=== PATIENT | male | born 1940 | race Hispanic/Latino ===

== ENCOUNTER 2017-04-15 06:31 | Day surgery (SDC) | payer MEDICARE ==
[2017-04-02 09:09] VITALS: BMI 34.9
[2017-04-15] MEDS ORDERED: Bupivacaine 0.5% Inj(30mL) ONE (07:19)
[2017-04-15] MEDS ORDERED: Propofol 10 mg/ml Inj (20 ML) ONE (07:59)
[2017-04-15] MEDS ORDERED: Midazolam 2 MG/2 ML VIAL ONE (07:59)
[2017-04-15] MEDS ORDERED: Rocuronium 10 mg/ml (5 ml) ONE (08:02)
[2017-04-15 08:03] VITALS: RESP 18
[2017-04-15] MEDS ORDERED: Neostigmine Methylsulfate 3mg/3ml Syringe IV ONE (08:17)
[2017-04-15] MEDS ORDERED: Glycopyrrolate 0.2 mg/ml (2ml vial) ONE (08:17)
[2017-04-15] MEDS ORDERED: Lactated Ringer's 1,000 ML IV SCH (09:21)
[2017-04-15] MEDS ORDERED: Morphine 2 mg/ml ISec IVP PRN (09:21)
[2017-04-15] MEDS ORDERED: Morphine 2 mg/ml ISec ONE (09:51)
[2017-04-15] MEDS ORDERED: Morphine 2 mg/ml ISec IVP ONE (09:53)
--- NOTE | 2017-04-15 10:40 | PCM.SURG1 ---
Surgeon's Initial Post Op Note - Surgeon's Notes Surgeon: David Regulated Program Manager: [id number] Type of Anesthesia: General Endo Pre-Operative Diagnosis: Incarcerated umbilical hernia Operative Findings: Incarcerated umbilical hernia containing omentum Post-Operative Diagnosis: Incarcerated umbilical hernia Operation Performed: Primary umbilical hernia repair Specimen/Specimens Removed: hernia sack with omentum Estimated Blood Loss: EBL {In ML}: 5 Blood Products Given: N/A Drains Used: No Drains Post-Op Condition: Good Date of Surgery/Procedure: 04/15/17 Time of Surgery/Procedure: 07:45
[2017-04-15] MEDS ORDERED: Oxycodone/Acetaminophen 5/325 mg Tab PO ONE (10:50)
[2017-04-15 10:52] VITALS: TEMP 97.8
--- NOTE | 2017-04-15 12:33 | OP ---
PROCEDURE DATE: 04/15/2017 The patient has an umbilical hernia that is rather large. It could not be reduced. PREOPERATIVE DIAGNOSIS: Umbilical hernia. POSTOPERATIVE DIAGNOSIS: Umbilical hernia. OPERATION PERFORMED: Umbilical herniorrhaphy. SURGEON: Adolph Hernandez MD. COMMUNICATIONS CONTROLLER: The resident. DESCRIPTION OF PROCEDURE: In the operating room, the patient, having been identified, an infraumbili blake incision was made through the skin and subcutaneous tissues that was enlarged a little bit. This was taken down to the fascia, and the umbilicus was from the stalk. In so doing, pretty m uch the entire hernia was dissected. Blunt dissection went around it to complete it. We could not r educe it, and the sac was then opened - the sac removed with the omentum, which was cauterized as nec essary. This went back very nicely. This showed it to be a very small hernia opening. This was uri sed with a mattress stitch of #1 Prolene x 2. Complete dissection was achieved. There was nothing e lse untoward. Prior to tying these 2 stitches simultaneously, a finger was placed in, and there was no bleeding and no obstruction. Subcutaneous tissues were closed with Vicryl. Skin was closed with subcuticular, light pressure dressing. The patient was taken to recovery room in good condition af ter the sponge and needle counts were declared correct. Adolph Hernandez MD cc: [id number] TT: 04/15/2017 12:32:28 jn
[2017-04-15 13:43] VITALS: O2SAT 96
[2017-04-15 13:44] VITALS: BP 126/72; PULSE 70
== END 2017-04-15 13:30 | disposition home or self-care (01) ==
LOC: SDS 06:31
PROVIDERS: ATTEND Surgery
DX: K42.9 Umbilical hernia without obstruction or gangrene (principal); I10 Essential (primary) hypertension; I25.10 Atherosclerotic heart disease of native coronary artery without angina pectoris; E11.9 Type 2 diabetes mellitus without complications; E78.5 Hyperlipidemia, unspecified; E66.9 Obesity, unspecified
CPT/HCPCS: 49585; 82948; 88302; J0690; J1100; J2001; J2250; J2270; J2405; J2704; J2710; J2765; J3010; J7120 ×2

== ENCOUNTER 2019-01-29 16:48 | Inpatient (IN) | payer MEDICARE ==
[2019-01-29 16:49] VITALS: BMI 34.9
--- NOTE | 2019-01-29 18:03 | ED PDOC ---
Arrival/HPI - General Chief Complaint: Lower Extremity Problem/Injury Time Seen by Provider: 01/29/19 17:02 Historian: Patient, Family (Daughter at bedside helped provide information) - History of Present Illness Narrative History of Present Illness (Text): 01/29/19 17:15 78 M with PMHx of falls, presents with cc of left knee pain status post slipping and falling on ice around 16:30 prior to arrival. Pt reports it felt like his knee cap "went off to the right side." Patient notes he is not able to put any weight on that leg. Patient notes mild pain to left upper thigh. Daughter at bedside notes patient is on blood thinners. Daughter notes if pain medication is needed, to avoid Percocet because it makes patient constipated. Patient denies any other complaints. PMD: Vickey Dennis Time/Duration: Prior to Arrival (Patient notes slip and fall from 16:30 today prior to arrival) Symptom Onset: Sudden Symptom Course: Unchanged Context: Slipped (Patient notes he slipped and fell on ice ) Past Medical History - Provider Review Nursing Documentation Reviewed: Yes - Infectious Disease Hx of Infectious Diseases: None - Cardiac Hx Hypertension: Yes Hx Pacemaker: No Other/Comment: Cardiac cath x 3 stents - Neurological Hx Paralysis: No - Endocrine/Metabolic Hx Diabetes Mellitus Type 2: Yes - Hematological/Oncological Hx Blood Transfusions: No Hx Blood Transfusion Reaction: No - Musculoskeletal/Rheumatological Hx Musculoskeletal Disorders: Yes - Psychiatric Hx Emotional Abuse: No Hx Physical Abuse: No Hx Substance Use: No - Surgical History Other/Comment: Cardiac cath x 3 stents - Anesthesia Hx Anesthesia Reactions: Yes (NAUSEA/VOMITING) Hx Malignant Hyperthermia: No - Suicidal Assessment Feels Threatened In Home Enviroment: No Family/Social History - Physician Review Nursing Documentation Reviewed: Yes Family/Social History: No Known Family HX Smoking Status: Never Smoked Hx Alcohol Use: No Hx Substance Use: No Allergies/Home Meds Allergies/Adverse Reactions: Allergies nitroglycerin Allergy (Intermediate, Verified 01/29/19 17:14) MIGRAINES Home Medications: Home Meds Medication Instructions Recorded Confirmed Aspirin [Ecotrin] 325 mg PO QAM 04/17/16 01/29/19 Atorvastatin [Lipitor] 80 mg PO DAILY 04/17/16 01/29/19 Carvedilol [Coreg] 6.25 mg PO BID 04/17/16 01/29/19 Celecoxib [Celebrex] 200 mg PO DAILY 04/17/16 01/29/19 Olmesartan/Amlodipin/Hcthiazid 1 tab PO QAM 04/17/16 01/29/19 [Tribenzor 5 mg-25 mg-40 mg] Potassium Chloride [Klor-Con M20] 20 meq PO QPM 04/17/16 01/29/19 Ranolazine [Ranexa] 500 mg PO QAM 04/17/16 01/29/19 Famotidine [Pepcid] 20 mg PO BID 04/18/16 01/29/19 Prasugrel [Effient] 1 tab PO DAILY 01/29/19 01/29/19 Review of Systems - Physician Review All systems were reviewed & negative as marked: Yes (All other systems negative except that noted in the HPI.) Physical Exam - Physical Exam Narrative Physical Exam (Text): Gen: VS reviewed, alert, well developed, well nourished, nontoxic, mild distress Eye: EOMI, PERRL Neck: no JVD, supple, no adenopathy CV: regular rate, regular rhythm, no rubs,no murmur, S1, S2 Pulm: no distress, clear to auscultation, no wheeze, no rhonchi, breath sounds equal, no rales Abd: soft, nontender, no guarding, no rebound, no rigidity Ext: Trace edema in bilateral lower extremities. Moderate effusions of left knee. Limited ROM of left knee, secondary to pain. Patella seems to be midline. Mild tenderness of distal anterior femur. Skin: good color, no rash, no cyanosis Psych: responds appropriately to questions, normal affect Neuro: oriented x3, CN2-12 intact grossly, motor intact, sensation intact Vital Signs Reviewed: Yes Vital Signs Temp Pulse Resp BP Pulse Ox 01/29/19 16:49 97.8 F 61 18 160/85 H 96 Temperature: Afebrile Blood Pressure: Hypertensive Pulse: Regular Respiratory Rate: Normal Appearance: Positive for: Well-Appearing, Non-Toxic Pain Distress: Mild Mental Status: Positive for: Alert and Oriented X 3 Medical Decision Making ED Course and Treatment: 01/29/19 Impression: 78 year old male who presents to the Emergency department for left knee pain status post slipping and falling on ice around 16:30 prior to arrival. Differential Diagnosis included but are not limited to: Plan: -- EKG -- Labs -- Pack ice -- X-ray of left femur -- X-ray of left knee with patellla -- Reassess and disposition Prior Visits: Notes and results from previous visits were reviewed. Progress Notes: 01/29/19 19:55 d/w ALFONZO jalloh covering with dr. flores, accept admit. patient to be admitted for traumatic knee effusion, unable to bear weight, fall risk and cannot function at home. will need ortho consult, pain control, possible PT 01/29/19 20:[address] aranda, will see patient in consultation - RAD Interpretation Narrative RAD Interpretations (Text): 01/29/19 X-ray of left femur interpreted by me, shows: No fracture. X-ray of left knee interpreted by me, shows: No fracture or dislocation. Radiology Orders: 01/29/19 17:21 Femur Left [FEMUR MIN 2 VIEWS LT] [RAD] Stat 01/29/19 17:22 KNEE WITH PATELLA LEFT 3 VIEW [RAD] Stat Ladle Puller: ED Physician - EKG Interpretation EKG Interpretation (Text): 01/29/19 19:45 [id number]: sinus giselle at 58 bpm, rbbb, nonspecific t wave abn Interpreted by ED Physician: Yes - Scribe Statement The provider has reviewed the documentation as recorded by the Scribe Mi Teran All medical record entries made by the Scribe were at my direction and per sonally dictated by me. I have reviewed the chart and agree that the record accurately reflects my personal performance of the history, physical exam, medical decision making, and the department course for this patient. I have also personally directed, reviewed, and agree with the discharge instructions and disposition. Disposition/Present on Arrival - Present on Arrival Any Indicators Present on Arrival: No History of DVT/PE: No History of Uncontrolled Diabetes: No Urinary Catheter: No History of Decub. Ulcer: No History Surgical Site Infection Following: None - Disposition Have Diagnosis and Disposition been Completed?: Yes Diagnosis: Effusion of knee Disposition: HOSPITALIZED Disposition Time: 19:55 Patient Plan: Admission Condition: STABLE
[2019-01-29 19:11] LABS: BASO # 0.02 K/mm3 (0.0-2.0); BASO % 0.1 % (0.0-3.0); EOS # 0.2 (0.0-0.7); EOS % 1.4 % (1.5-5.0); HEMOGLOBIN 13.8 g/dL (14.0-18.0); LYMPH # 4.9 (1.2-3.4); LYMPH % 32.9 % (22.0-35.0); MEAN CORPUSCULAR HEMOGLOBIN 30.5 pg (25.0-35.0); MEAN CORPUSCULAR HGB CONC 34.2 g/dl (31.0-37.0); MEAN PLATELET VOLUME 10.2 fl (7.0-11.0); MONO # 0.5 (0.1-0.6); MONO % 3.3 % (1.0-6.0); RBC 4.53 10^6/uL (3.5-6.1); RED CELL DISTRIBUTION WIDTH 13.2 % (11.5-14.5); WHITE BLOOD COUNT 14.8 10^3/uL (4.5-11.0)
[2019-01-29 19:20] LABS: INR 1.06; PARTIAL THROMBOPLASTIN TIME 29.4 Seconds (26.9-38.3); PROTHROMBIN TIME 11.8 SECONDS (9.4-12.5)
[2019-01-29 19:25] LABS: BLOOD UREA NITROGEN 18 mg/dL (7-21); CALCIUM 7.8 mg/dL (8.4-10.5); GFR NON-AFRICAN AMERICAN > 60
[2019-01-29] MEDS: Potassium Chloride 20 mEq ER Tab PO SCH (23:07)
--- NOTE | 2019-01-30 08:23 | CARD ---
APPROVED REPORT Date of service: 01/29/2019 EKG Measurement Heart [id number] <Conclusion> Sinus bradycardia with sinus arrhythmia with 1st degree AV block Right bundle branch block Abnormal ECG
[2019-01-30] MEDS ORDERED: AMLODIPIN PO SCH (10:00)
[2019-01-30] MEDS ORDERED: HCTHIAZID PO SCH (10:00)
[2019-01-30] MEDS ORDERED: [UNRECOGNIZED DRUG - OTHER] PO SCH (10:00)
[2019-01-30] MEDS ORDERED: OLMESARTAN PO SCH (10:00)
--- NOTE | 2019-01-30 10:20 | RAD ---
Date of service: 01/29/2019 PROCEDURE: Left Femur Radiographs. HISTORY: fall, injury COMPARISON: None. TECHNIQUE: AP and Lateral Radiographs of the left femur. FINDINGS: FEMUR: Normal. No fracture. SOFT TISSUES: Normal. OTHER FINDINGS: None. IMPRESSION: Unremarkable radiographs of the left femur.
--- NOTE | 2019-01-30 10:24 | RAD ---
Date of service: 01/29/2019 PROCEDURE: Left Knee Radiographs. HISTORY: Pain. COMPARISON: None. FINDINGS: BONES: Normal. No fracture. JOINTS: Normal. No osteoarthritis. JOINT EFFUSION: None. OTHER FINDINGS: Soft tissue swelling above the patella IMPRESSION: No evidence of fracture
[2019-01-30] MEDS: Potassium Chloride 20 mEq ER Tab PO SCH ×2 (11:12→18:14)
--- NOTE | 2019-01-30 11:15 | CT ---
Date of service: 01/29/2019 PROCEDURE: HISTORY: trauma COMPARISON: TECHNIQUE: FINDINGS: No acute fracture. Marked anterior prepatellar soft tissue swelling as well as a large joint effusion. [id number] tricompartmental osteoarthritis. Cannot exclude a partial tear of the quadriceps tendon. Vascular calcifications. IMPRESSION: No acute fracture. Large joint effusion and prepatellar soft tissue swelling.
--- NOTE | 2019-01-30 14:22 | CP.PCM.PN ---
Subjective - Date & Time of Evaluation Date of Evaluation: 01/30/19 Time of Evaluation: 14:19 - Subjective Subjective: Patient has been afebrile. Tolerating therapy well. Plan to go home tomorrow Dressings changed. Incision clean dry and intact with sutures in place. No erythema or drainage. Calf and thigh soft and nontender. NVI distally s/p R TKA Cont PT Cont DVT prophylaxis Discharge tomorrow to home with home PT or outpatient therapy Patient to follow up in office on Objective - Vital Signs/Intake and Output Vital Signs (last 24 hours): Temp Pulse Resp BP Pulse Ox 97.3 F L 61 20 155/88 H 93 L 01/30/19 08:00 01/30/19 11:13 01/30/19 08:00 01/30/19 11:13 01/30/19 08:00 - Medications Medications: Current Medications Amlodipine Besylate (Norvasc) 5 mg PO DAILY [facility] Last Admin: 01/30/19 11:12 Dose: 5 mg Atorvastatin Calcium (Lipitor) 80 mg PO DAILY [facility] Last Admin: 01/30/19 11:14 Dose: 80 mg Carvedilol (Coreg) 6.25 mg PO BID [facility] Last Admin: 01/30/19 11:13 Dose: 6.25 mg Famotidine (Pepcid) 20 mg PO BID [facility] Last Admin: 01/30/19 11:14 Dose: 20 mg Hydrochlorothiazide (Hydrodiuril) 25 mg PO DAILY [facility] Last Admin: 01/30/19 11:14 Dose: 25 mg Losartan Potassium (Cozaar) 100 mg PO DAILY [facility] Last Admin: 01/30/19 11:12 Dose: 100 mg Non-Formulary Medication (Ranolazine [Ranexa]) 500 mg PO QAM [facility] Potassium Chloride (K-Dur 20 Meq Er Tab) 20 meq PO DAILY [facility] Last Admin: 01/30/19 11:12 Dose: 20 meq Potassium Chloride (K-Dur 20 Meq Er Tab) 20 meq PO QPM [facility] Tramadol HCl (Ultram) 50 mg PO TID PRN PRN Reason: Pain, severe (8-10) Last Admin: 01/30/19 05:23 Dose: 50 mg - Labs Labs: 01/29/19 19:07 01/29/19 19:07 PT 11.8 SECONDS (9.4-12.5) 01/29/19 19:07 INR 1.06 01/29/19 19:07 APTT 29.4 Seconds (26.9-38.3) 01/29/19 19:07
--- NOTE | 2019-01-30 16:02 | CP.PCM.PCO ---
Physician Communication Note - Physician Communication Note Physician Communication Note: s/p drainage left knee effusion,awaiting MRI left knee r/o quad tear,PT geremias
--- NOTE | 2019-01-30 16:28 | HP ---
DATE OF EXAM: 01/30/2019 HISTORY OF PRESENT ILLNESS: A 78-year-old white male with history of hypertension, CAD, status post multiple stents, history of gout and degenerative arthritis. The patient recently found on day of admission, slipping on the ice and injuring his left knee. The patient was unable to ambulate after the fall, then he started to swell traumatically, eventually, the patient because was unable to ambulate was brought to the hospital for evaluation. The patient is unable to bear weight and complaining of pain and swelling in the left knee. REVIEW OF SYSTEMS: CARDIAC: Negative for syncope, palpitations, chest pain, shortness of breath. RESPIRATORY: Negative for cough, sputum production or dyspnea. NEUROLOGICAL: Negative for lightheadedness, dizziness, headache or syncope. GI: Negative for nausea, vomiting and diarrhea. He is negative for dysuria, hematuria and frequency. MUSCULOSKELETAL: Positive for pain and swelling of the left knee. The patient also recently had an episode of infection versus gout of the third toe of the left foot. SOCIAL HISTORY: The patient is a nonsmoker and nondrinker. MEDICATIONS: He is on multiple medications including Effient and aspirin for his coronary artery disease. He has no travel history. FAMILY HISTORY: There is no family history that is pertinent. PHYSICAL EXAMINATION GENERAL: Shows well-developed,but obese white male in mild distress. HEENT: Essentially within normal limits. HEART: Regular sinus rhythm. No S3 or murmurs. CHEST: Clear to auscultation and percussion. ABDOMEN: Obese, but benign. EXTREMITIES: Without cyanosis, clubbing or edema. There is healing erythema of the third toe of the left foot. There is marked swelling, ecchymosis and fluctuance of the left knee without and/or erythema. There is decreased range of motion. There is some crepitus on movement of the knee. IMPRESSION AND PLAN: Contusion of the left knee with marked swelling and bleeding, the patient is on blood thinners. The patient has a history of surgery of his left shoulder and arthroscopic surgery of his right knee and he also had other viscous injection, injections of his left knee. Rule out fracture, rule out internal derangement, rule out hemarthrosis of the knee. Vickey Kirkland MD
[2019-01-30] MEDS: Non Formulary Medication (Ranolazine [Ranexa] 500 MG) PO SCH (18:09)
--- NOTE | 2019-01-30 23:51 | CON ---
DATE: 01/30/2019 INPATIENT CONSULTATION NOTE REASON FOR CONSULTATION: Status post fall with left knee pain and effusion. HISTORY OF PRESENT ILLNESS: This is a 78-year-old gentleman who yesterday slipped and fell injuring his left knee. He said his left leg appear to be twisted to the side and felt like his knee cap was to the side. Subsequently, he went to the hospital via EMS and was noted to have a very large effusion. The patient denies any other injuries. The patient states he is unable to bear weight on it secondary to pain. PHYSICAL EXAMINATION: GENERAL: This is a gentleman in no apparent distress. He is awake, alert, and oriented x3. EXTREMITIES: Evaluation of the left knee shows a large suprapatellar effusion. He does have some ecchymosis anteriorly. He has some tenderness along the proximal aspect of the patella and the medial aspect of the patella as well. He is unable to perform a straight leg raise. He is grossly stable with varus valgus test. Grossly stable with Arcadio. His thigh and calf are soft and nontender. Neurovascularly, he is grossly intact. He has palpable pedal pulses. DIAGNOSTIC DATA: X-ray and CAT scan of the left knee showed no acute fracture or dislocation. The patella does not appear to be high or low consistent with either patella or quadriceps tendon tear. Some degenerative changes are noted. ASSESSMENT: Status post fall with left knee effusion. PLAN: At this point, I recommended ice and knee mobilizer. Also, recommended weightbearing as tolerated and we will order an MRI of the left knee. We will followup. Harry Valero MD
[2019-01-31 08:44] LABS: MEAN CELL VOLUME 90.8 fl (80.0-105.0); MEAN CORPUSCULAR HEMOGLOBIN 29.9 pg (25.0-35.0); MEAN PLATELET VOLUME 10.4 fl (7.0-11.0); RBC 4.01 10^6/uL (3.5-6.1); RED CELL DISTRIBUTION WIDTH 13.6 % (11.5-14.5); WHITE BLOOD COUNT 10.8 10^3/uL (4.5-11.0)
[2019-01-31 08:51] LABS: ALB/GLOB RATIO 1.4 (1.1-1.8); ALBUMIN 3.5 g/dL (3.0-4.8); ALT/SGPT 14 U/L (7-56); AST/SGOT 30 U/L (17-59); BLOOD UREA NITROGEN 25 mg/dL (7-21); CALCIUM 9.4 mg/dL (8.4-10.5); GFR NON-AFRICAN AMERICAN 54
[2019-01-31] MEDS: Potassium Chloride 20 mEq ER Tab PO SCH ×2 (09:35→18:41)
[2019-01-31] MEDS: Non Formulary Medication (Ranolazine [Ranexa] 500 MG) PO SCH (10:03)
--- NOTE | 2019-01-31 14:31 | PN ---
DATE: 01/31/2019 SUBJECTIVE: A 78-year-old white male, status post fall, injuring the left knee. The patient was seen in consultation with Dr. Arriaga. He had attempted arthrocentesis without significant effusion drained. CT showed large effusion of the knee without fracture. The patient has marked swelling and erythema of the left knee and surrounding soft tissues and some swelling. He has minimal pain. The patient is having an MRI today to rule out a tear of the quadriceps muscle. The patient did start physical therapy and occupational therapy and was also taught to use crutches and do stairs. He will be discharged home if the MRI is negative. He will follow as an outpatient . Vickey Kirkland MD
[2019-02-01 07:35] VITALS: BP 130/69; PULSE 60; RESP 18; TEMP 97.9; O2SAT 95
[2019-02-01] MEDS: Potassium Chloride 20 mEq ER Tab PO SCH (10:24)
[2019-02-01] MEDS: Non Formulary Medication (Ranolazine [Ranexa] 500 MG) PO SCH (10:25)
--- NOTE | 2019-02-01 16:02 | RAD ---
HISTORY: pre-op COMPARISON: Chest x-ray performed 04/02/17 TECHNIQUE: Chest, one view. FINDINGS: Examination limited by habitus and hypoinflation. LUNGS: Right basilar atelectasis. Please note that chest x-ray has limited sensitivity for the detection of pulmonary masses. PLEURA: No significant pleural effusion identified. No definite pneumothorax . CARDIOVASCULAR: Heart size appears within normal limits. Atherosclerotic calcifications aorta. The patient's chin obscures evaluation of lung apices. OSSEOUS STRUCTURES: Degenerative changes. VISUALIZED UPPER ABDOMEN: Elevation of the right hemidiaphragm OTHER FINDINGS: None. IMPRESSION: Right basilar atelectasis.
--- NOTE | 2019-02-01 21:42 | DS ---
HISTORY OF PRESENT ILLNESS: A 78-year-old white male with history of chronic atrial fibrillation, hypertension, CAD status post stents, status post fall with trauma to the left knee. He was seen in consultation with Dr. Valero. The patient had a CT and also an MRI, which revealed a full thickness ACL tear and a tear of the patellar tendon. The patient has marked swelling and erythema. The patient had been on Effient because of his chronic atrial fibrillation. Dr. Valero attempted a drainage, but there was no blood or fluid in the joint. The patient was started on physical therapy, occupational therapy, had severe pain and difficulty ambulating. The patient will be scheduling for surgery now and he could be discharged home today with a walker and crutches. He does have some at home. He will hold his Effient until the surgery and he will be followed as out for preoperative surgery later on this week. DISCHARGE DIAGNOSES: 1. Fall resulting in tear of the left anterior cruciate ligament and patellar tendon. 2. Hemarthrosis of the left knee. 3. Chronic atrial fibrillation. 4. Coronary artery disease. Vickey Kirkland MD
--- NOTE | 2019-02-02 10:55 | MRI ---
Date of service: 01/31/2019 PROCEDURE: MRI Left Knee HISTORY: Pain. COMPARISON: None available. TECHNIQUE: Multiecho multiplanar sequences were performed through the left knee. FINDINGS: ANTERIOR CRUCIATE LIGAMENT:: Intact. POSTERIOR CRUCIATE LIGAMENT:: Intact. MEDIAL MENISCUS:: There is a tear in the body and posterior horn of the medial meniscus. LATERAL MENISCUS:: Intact. MEDIAL COLLATERAL LIGAMENT:: Intact. LATERAL COLLATERAL LIGAMENT COMPLEX:: Intact. QUADRICEPS TENDON:: There is a complete tear of the quadriceps tendon just above the patella. There is a large amount of soft tissue swelling and edema. PATELLAR TENDON:: Intact. CARTILAGE:: Thinning of the patellar cartilage JOINT FLUID:: Small joint effusion OSSEOUS STRUCTURES:: Intact. OTHER FINDINGS: The report concurs with the preliminary [facility] report IMPRESSION: There is a complete tear of the quadriceps tendon just above the patella. There is a large amount of soft tissue swelling and edema. There is a tear in the body and posterior horn of the medial meniscus.
== END 2019-02-01 14:36 | disposition home or self-care (01) | DRG 565 ==
LOC: ED 16:48 → ERH 19:50 → 3RNO 22:07
PROVIDERS: ADMIT Internal Medicine; ATTEND Internal Medicine
DX: M25.462 Effusion, left knee (principal); M25.062 Hemarthrosis, left knee; S83.512A Sprain of anterior cruciate ligament of left knee, initial encounter; S76.112A Strain of left quadriceps muscle, fascia and tendon, initial encounter; S80.02XA Contusion of left knee, initial encounter; E11.9 Type 2 diabetes mellitus without complications; I10 Essential (primary) hypertension; I25.10 Atherosclerotic heart disease of native coronary artery without angina pectoris; I48.2 Chronic atrial fibrillation; W00.0XXA Fall on same level due to ice and snow, initial encounter; Z79.02 Long term (current) use of antithrombotics/antiplatelets; Z79.82 Long term (current) use of aspirin; Z79.899 Other long term (current) drug therapy; Z95.5 Presence of coronary angioplasty implant and graft; Y92.9 Unspecified place or not applicable

== ENCOUNTER → 2019-02-06 | Day surgery (SDC) | payer MEDICARE | LOC: SDS 06:35 | DX: S76.112A Strain of left quadriceps muscle, fascia and tendon, initial encounter (principal) ==